=== PATIENT | female | born 1930 | race Caucasian/White ===

== ENCOUNTER → 2016-11-19 | Outpatient (CLI) | payer MEDICARE, BC ==
[~2016-11-19] MED LIST: AMIO200T2 PO; ASPI-557 PO; DORZ10DR15 RIGHT EYE; FURO20TA4 PO; LATA2.5D7 RIGHT EYE; LISI-621 PO; POTA10CA37 PO; RANI150T7 PO; SERT-104 PO; SIMV40TA82 PO
== END ==
LOC: LABN.PM 08:22
PROVIDERS: ATTEND Family Medicine
DX: E11.9 Type 2 diabetes mellitus without complications (principal)
CPT/HCPCS: 82043

== ENCOUNTER → 2016-11-24 | Outpatient (CLI) | payer MEDICARE, BC ==
[2016-11-24 07:16] LABS: INR 3.52 (0.76-1.04); PROTHROMBIN TIME 38.4 SEC (9.31-12.49)
== END ==
LOC: LABNH.PM 02:18
PROVIDERS: ATTEND Family Medicine
DX: Z79.01 Long term (current) use of anticoagulants (principal)
CPT/HCPCS: 36415; 85610; P9604

== ENCOUNTER → 2016-12-29 | Outpatient (CLI) | payer MEDICARE, BC ==
[2016-12-29 07:19] LABS: INR 2.88 (0.76-1.04); PROTHROMBIN TIME 31.4 SEC (9.31-12.49)
== END ==
LOC: LABNH.PM 01:43
PROVIDERS: ATTEND Family Medicine
DX: Z79.01 Long term (current) use of anticoagulants (principal)
CPT/HCPCS: 36415; 85610; P9604